=== PATIENT | male | born 1950 | race Caucasian/White ===

== ENCOUNTER 2016-10-01 17:12 | Inpatient (IN) | payer MEDICARE, MEDICAID ==
[~2016-10-01] VITALS: Ht 167.6 cm; Wt 55.9 kg
[~2016-10-01 17:12] MED LIST: INCRUSE EL62.5 MCG/A IH; LEVAQUIN 5500 MG/TA1 PO; RT ADVAIR 228 DISKUS IH
[2016-10-02 09:08] VITALS: BP 99/50; PULSE 64; TEMP 98.6
[2016-10-02 16:44] VITALS: BP 125/89; PULSE 78; TEMP 98.3
[2016-10-02 18:54] VITALS: BP 112/66; PULSE 66; TEMP 99.2
[2016-10-03 04:07] VITALS: BP 103/67; PULSE 86; TEMP 97.5
[2016-10-03 17:17] VITALS: BP 94/68; PULSE 63; TEMP 98.6
[2016-10-04 05:28] VITALS: BP 119/65; PULSE 64; TEMP 97.7
[2016-10-04 16:11] VITALS: BP 153/73; PULSE 76; TEMP 98.6
[2016-10-05 05:02] VITALS: BP 127/66; PULSE 68; TEMP 98
[2016-10-05 16:53] VITALS: BP 120/89; PULSE 77; TEMP 98.1
[2016-10-06 04:18] VITALS: BP 116/71; PULSE 62; TEMP 98.2
[2016-10-06 15:54] VITALS: BP 135/73; PULSE 73; TEMP 98.9
[2016-10-07 04:38] VITALS: BP 116/74; PULSE 62; TEMP 98.6
[2016-10-07 16:56] VITALS: BP 137/70; PULSE 68; TEMP 98.3
[2016-10-08 05:23] VITALS: BP 113/59; PULSE 64; TEMP 97.8
[2016-10-08 16:28] VITALS: BP 119/81; PULSE 71; TEMP 97.7
[2016-10-09 05:42] VITALS: BP 109/71; PULSE 64; TEMP 97.6
[2016-10-09 17:14] VITALS: BP 103/63; PULSE 69; TEMP 97.8
[2016-10-10 03:53] VITALS: BP 110/54; PULSE 64; TEMP 97
== END 2016-10-10 14:30 | disposition home health service (06) | DRG 948 ==
DX: R53.81 Other malaise (principal); Z66 Do not resuscitate; M62.50 Muscle wasting and atrophy, not elsewhere classified, unspecified site; R13.10 Dysphagia, unspecified; J44.9 Chronic obstructive pulmonary disease, unspecified; F17.210 Nicotine dependence, cigarettes, uncomplicated; Z91.81 History of falling
CPT/HCPCS: 99222-AI; 99232-AI; 99239; J1650

== ENCOUNTER 2016-11-23 17:56 | Inpatient (IN) | payer MEDICARE, MEDICAID ==
[~2016-11-23] VITALS: Ht 167.6 cm; Wt 52.9 kg
[2016-11-23] MEDS ORDERED: REMERON 15M15 MG/TA1 PO (18:11)
[2016-11-23 18:33] LABS: ADJUSTED CALCIUM 9.3 mg/dL (8.4-10.2); ALBUMIN 4.1 gm/dL (3.5-5.0); BILIRUBIN,TOTAL 0.8 mg/dL (0.0-1.0); CALCIUM 9.4 mg/dL (8.4-10.2); CREATININE, serum 0.64 mg/dL (0.66-1.25); TOTAL PROTEIN 7.6 gm/dL (6.4-8.2)
[2016-11-23] MEDS ORDERED: ATROVENT I0.2 MG/1 M IH (18:33)
[2016-11-23 18:35] LABS: HEMATOCRIT 43.1 % (42.0-52.0); HEMOGLOBIN 14.8 g/dl (13.5-18.0); MEAN CELL VOLUME 91 fl (80.0-100.0); MEAN CORPUSCULAR HEMOGLOBIN 31 pg (27.0-31.0); MEAN CORPUSCULAR HGB CONC 34 g/dl (33.0-37.0); MEAN PLATELET VOLUME 10.4 fl (7.4-10.4); PLATELET COUNT 216 K/mm3 (130-400); RED BLOOD COUNT 4.76 M/mm3 (4.20-5.60); WHITE BLOOD COUNT 15.9 K/mm3 (4.8-10.8)
[2016-11-23 18:37] LABS: ADD PATHOLOGY DIFF REVIEW NO; PROTHROMBIN TIME 11.6 SECONDS (9.7-12.8)
[2016-11-23 18:43] LABS: TROPONIN-I 0.057 ng/mL (0.000-0.034)
[2016-11-23 18:49] LABS: BAND 17 % (0-10); METAMYELOCYTE 3 % (0-0); NEUTROPHILS 69 % (42.0-75.2); TOTAL CELLS COUNTED 100
[2016-11-23 18:51] LABS: ANISOCYTOSIS 1+; HYPOCHROMIA 1+; MICROCYTOSIS 1+; POLYCHROMASIA 1+
[2016-11-23 18:55] LABS: C-REACTIVE PROTEIN 25.7 mg/dL (0.0-0.9)
[2016-11-23 21:27] VITALS: BP 112/55; PULSE 100; TEMP 97.8
[2016-11-24 00:31] VITALS: BP 96/61; PULSE 91; TEMP 97.8
[2016-11-24 02:08] LABS: PH 6 (5-8); SQUAMOUS EPITHELIAL None Seen /hpf; URINE APPEARANCE Clear; URINE BACTERIA None Seen /hpf; URINE BILIRUBIN Negative (NEGATIVE); URINE BLOOD 2+ (NEGATIVE); URINE COLOR Yellow; URINE GLUCOSE Negative (NEGATIVE); URINE KETONE 2+ (NEGATIVE); URINE RBC 20-50 /hpf; URINE UROBILINOGEN Negative (NEGATIVE); URINE WBC 0-2 /hpf
[2016-11-24 07:44] LABS: HEMATOCRIT 39.6 % (42.0-52.0); HEMOGLOBIN 13.1 g/dl (13.5-18.0); MEAN CELL VOLUME 94 fl (80.0-100.0); MEAN CORPUSCULAR HEMOGLOBIN 31 pg (27.0-31.0); MEAN CORPUSCULAR HGB CONC 33 g/dl (33.0-37.0); MEAN PLATELET VOLUME 10.3 fl (7.4-10.4); PLATELET COUNT 204 K/mm3 (130-400); RED BLOOD COUNT 4.23 M/mm3 (4.20-5.60); REDCELL DISTRIBUTION WIDTH-CV 14.2 % (11.5-14.5); WHITE BLOOD COUNT 7.9 K/mm3 (4.8-10.8)
[2016-11-24 07:50] LABS: ADD PATHOLOGY DIFF REVIEW NO
[2016-11-24 07:58] LABS: CALCIUM 8.8 mg/dL (8.4-10.2); CREATININE, serum 0.57 mg/dL (0.66-1.25); POTASSIUM 4.1 mmol/L (3.4-5.0)
[2016-11-24 07:59] VITALS: BP 92/64; PULSE 75; TEMP 97.7
[2016-11-24 08:08] LABS: TROPONIN-I 0.018 ng/mL (0.000-0.034)
[2016-11-24 12:00] VITALS: BP 113/63; PULSE 88; TEMP 97.9
[2016-11-24 12:42] LABS: MYELOCYTE 1 % (0-0)
[2016-11-24 12:44] LABS: ANISOCYTOSIS 1+
[2016-11-24 12:48] LABS: ACANTHOCYTES 1+; BAND 48 % (0-10); DOHLE BODIES PRESENT; METAMYELOCYTE 2 % (0-0); NEUTROPHILS 30 % (42.0-75.2); PLATELET ESTIMATE NORMAL (NORMAL); TOTAL CELLS COUNTED 100; TOXIC GRANULATION PRESENT
[2016-11-24 16:41] VITALS: BP 107/60; PULSE 82; TEMP 97.2
[2016-11-24 20:36] VITALS: BP 110/95; PULSE 17; TEMP 98.2
[2016-11-24 23:12] VITALS: BP 134/58; PULSE 73; TEMP 98.4
[2016-11-25 03:22] VITALS: BP 125/73; PULSE 86; TEMP 97.8
[2016-11-25 07:30] LABS: HEMATOCRIT 33.5 % (42.0-52.0); HEMOGLOBIN 11.3 g/dl (13.5-18.0); MEAN CELL VOLUME 92 fl (80.0-100.0); MEAN CORPUSCULAR HEMOGLOBIN 31 pg (27.0-31.0); MEAN CORPUSCULAR HGB CONC 34 g/dl (33.0-37.0); MEAN PLATELET VOLUME 10.4 fl (7.4-10.4); PLATELET COUNT 188 K/mm3 (130-400); RED BLOOD COUNT 3.66 M/mm3 (4.20-5.60); REDCELL DISTRIBUTION WIDTH-CV 14.5 % (11.5-14.5); WHITE BLOOD COUNT 8.7 K/mm3 (4.8-10.8)
[2016-11-25 07:39] LABS: CALCIUM 8.7 mg/dL (8.4-10.2); CREATININE, serum 0.43 mg/dL (0.66-1.25); POTASSIUM 3.7 mmol/L (3.4-5.0)
[2016-11-25 08:09] VITALS: BP 111/48; PULSE 76; TEMP 97.5
[2016-11-25 12:20] VITALS: BP 106/55; PULSE 73; TEMP 97.3
[2016-11-25 15:43] VITALS: BP 109/50; PULSE 83; TEMP 97.8
[2016-11-25] MEDS ORDERED: PREDNISONE20 MG PO (16:26)
[2016-11-25] MEDS ORDERED: LEVAQUIN 750MG750 M1 PO (16:28)
[2016-11-25] MEDS ORDERED: CLEOCIN HCL300 MG PO (16:29)
== END 2016-11-25 18:30 | disposition home health service (06) | DRG 189 ==
LOC: COL.ER 17:56 → MEDICAL 19:15
PROVIDERS: Emergency Medicine; Internal Medicine; Nurse Practitioner Family
DX: J96.01 Acute respiratory failure with hypoxia (principal); E43 Unspecified severe protein-calorie malnutrition; J44.1 Chronic obstructive pulmonary disease with (acute) exacerbation; Z68.1 Body mass index [BMI] 19.9 or less, adult; Z66 Do not resuscitate; T79.6XXA Traumatic ischemia of muscle, initial encounter; W18.30XA Fall on same level, unspecified, initial encounter; F17.210 Nicotine dependence, cigarettes, uncomplicated
CPT/HCPCS: 99223-AI; 99239; J1956; J2920; J2930; J7030